=== PATIENT | female | born 1985 | race Asian ===

== ENCOUNTER 2018-07-09 07:59 | Day surgery (SDC) | payer OTHER ==
[2018-07-09] MEDS ORDERED: FENTAnyl 50 MCG/ML VIAL (09:56)
[2018-07-09] MEDS ORDERED: MIDAZOLAM 1 MG/ML 2 ML INJ ×2 (09:56→09:57)
== END 2018-07-09 11:10 | disposition home or self-care (01) ==
LOC: GIL 07:59
DX: K64.8 Other hemorrhoids (principal); K64.4 Residual hemorrhoidal skin tags
CPT/HCPCS: 45378; 84703

== ENCOUNTER 2018-08-25 14:14 | Emergency (ER) | payer SELFPAY, OTHER | END 2018-08-25 16:15 | disposition left against medical advice (07) | LOC: E/R 16:15 | DX: Z53.21 Procedure and treatment not carried out due to patient leaving prior to being seen by health care provider (principal) ==

== ENCOUNTER 2018-08-26 09:31 | Emergency (ER) | payer OTHER | END 2018-08-26 11:25 | disposition home or self-care (01) | LOC: FTE 09:31 | DX: R05 Cough (principal) | CPT/HCPCS: 99283; Z7502 ==

== ENCOUNTER 2018-12-05 00:22 | Emergency (ER) | payer OTHER | END 2018-12-05 03:50 | disposition home or self-care (01) | LOC: FTE 00:22 | DX: R42 Dizziness and giddiness (principal) | CPT/HCPCS: 99282; Z7502 ==